=== PATIENT | male | born 1955 | race African-American/Black ===

== ENCOUNTER 2018-02-05 15:32 | Emergency (ER) | payer BC ==
--- NOTE | 2018-02-05 15:49 | PDOC ---
Rapid Medical Evaluation Chief Complaint: Chest Pain Time Seen by Provider: 02/05/18 15:46 Medical Evaluation: Allergies Allergy/AdvReac Type Severity Reaction Status Date / Time No Known Allergies Allergy Verified 02/05/18 15:45 02/05/18 15:47 The patient presents with a chief complaint of: while eating lunch he developed chest pain squezing started 3 days ago. I have performed a brief in-person evaluation of this patient; Pertinent physical exam findings: ambulatory, in no respiratory distress I have ordered the following: labs, troponins, ekg The patient will proceed to the ED for further evaluation
[2018-02-05 15:50] VITALS: TEMP 98.6; BMI 22.5
--- NOTE | 2018-02-05 16:46 | PDOC ---
History of Present Illness <Laury Simmons - Last Filed: 02/05/18 21:52> - General History Source: Patient Exam Limitations: No Limitations - History of Present Illness Initial Comments: 02/05/18 21:44 Patient is a 62 year old male with a significant medical history of Asthma who present to the ED with complaints of chest pain that he said began 3 days ago. Patient reports experiencing chest pain that he states began 3 days while at home that radiates to his left arm. He reports chest pain is a heavy pain that increases with exertion. Patient reports experiencing associated Sob that is increased with exertion. He reports experiencing diffuse abdominal pain as well that he states is increased when eating. Patient reports experiencing a sour taste in the back of his throat when eating as well as feeling a burning sensation up his chest from his abdomen when eating. He reports experiencing slight sweating while eating, but denies any sweating when experiencing chest pains. Patient states he takes baby aspirin every day, stating his last aspirin was this morning. Denies nausea, vomiting. Denies fevers, chills. Denies dysuria, hematuria, constipation, diarrhea. Denies contact with sick individuals, out of state travelling. Denies any other symptoms. Allergies: None Social history: No smoking. No alcohol. No illicit drugs. Surgical history: None PMD: Dr. Jeovany De Souza <Justus Chang - Last Filed: 02/05/18 22:49> - General Chief Complaint: Chest Pain Stated Complaint: CHEST PAIN Time Seen by Provider: 02/05/18 15:46 Past History - Past Medical History COPD: No Diabetes: Yes (borderline) HTN: Yes Hypercholesterolemia: Yes - Immunization History Immunization Up to Date: Yes - Suicide/Smoking/Psychosocial Hx Smoking History: Never smoked <Laury Simmons - Last Filed: 02/05/18 21:52> <Justus Chang - Last Filed: 02/05/18 22:49> - Past Medical History Allergies/Adverse Reactions: Allergies Allergy/AdvReac Type Severity Reaction Status Date / Time No Known Allergies Allergy Verified 02/05/18 15:45 Home Medications: Ambulatory Orders Aspirin 81 mg PO DAILY 02/05/18 Ranitidine [Zantac -] 150 mg PO BID 14 Days #28 tablet 02/05/18 Review of Systems - Review of Systems Able to Perform ROS?: Yes Comments:: 02/05/18 22:49 GENERAL/CONSTITUTIONAL: +Diaphoresis. No fever or chills. No weakness. HEAD, EYES, EARS, NOSE AND THROAT: No change in vision. No ear pain or discharge. No sore throat. GASTROINTESTINAL: +abdominal pain. No nausea, vomiting, diarrhea or constipation. GENITOURINARY: No dysuria, frequency, or change in urination. CARDIOVASCULAR: +Chest pain. +Sob. RESPIRATORY: No cough, wheezing, or hemoptysis. MUSCULOSKELETAL:No joint or muscle swelling or pain. No neck or back pain. SKIN: No rash NEUROLOGIC: No headache, vertigo, loss of consciousness, or change in strength/ sensation. ENDOCRINE: No increased thirst. No abnormal weight change. HEMATOLOGIC/LYMPHATIC: No anemia, easy bleeding, or history of blood clots. ALLERGIC/IMMUNOLOGIC: No hives or skin allergy. <Justus Chang - Last Filed: 02/05/18 22:49> *Physical Exam - Vital Signs Last Vital Signs Temp Pulse Resp BP Pulse Ox 98.6 F 84 18 128/99 98 02/05/18 15:46 02/05/18 15:46 02/05/18 15:46 02/05/18 15:46 02/05/18 15:46 <Laury Simmons - Last Filed: 02/05/18 21:52> - Vital Signs Last Vital Signs Temp Pulse Resp BP Pulse Ox 98.6 F 64 18 133/91 98 02/05/18 15:46 02/05/18 19:27 02/05/18 19:27 02/05/18 19:27 02/05/18 19:27 - Physical Exam Comments: 02/05/18 21:45 GENERAL: Awake, alert, and fully oriented, in no acute distress HEAD: No signs of trauma EYES: PERRLA, EOMI, sclera anicteric, conjunctiva clear ENT: Auricles normal inspection, hearing grossly normal, nares patent, oropharynx clear without exudates. Moist mucosa NECK: Normal ROM, supple, no lymphadenopathy, JVD, or masses LUNGS: Breath sounds equal, clear to auscultation bilaterally. No wheezes, and no crackles HEART: Regular rate and rhythm, normal S1 and S2, no murmurs, rubs or gallops ABDOMEN: +Mild epigastric tenderness Soft, normoactive bowel sounds. No guarding, no rebound. No masses EXTREMITIES: Normal range of motion, no edema. No clubbing or cyanosis. No cords, erythema, or tenderness NEUROLOGICAL: Cranial nerves II through XII grossly intact. Normal speech, normal gait SKIN: Warm, Dry, normal turgor, no rashes or lesions noted. <CharleneJustus - Last Filed: 02/05/18 22:49> Heart Score/ECG Review - History History: Moderately suspicious - Electrocardiogram EKG: Normal - Age Age: 45-65 - Risk Factors Risk Factors Heart Score: Yes Hx Hypertension Based on the list above the patient has:: 1-2 risk factors - Troponin Troponin: </= normal limit - Score Heart Score - Total: 3 - ECG Intrepretation Comment:: 02/05/18 17:03 sinus at 77, L axis, nl interval, poor r wave progression, q waves anteriorly and inferiorly that are age indeterminate, no acute st/t wave findings <Laury Simmons - Last Filed: 02/05/18 21:52> ED Treatment Course - LABORATORY CBC & Chemistry Diagram: 02/05/18 16:42 02/05/18 16:42 - RADIOLOGY Radiology Studies Ordered: Category Date Time Status CHEST PA & LAT [RAD] Stat Radiology 02/05/18 16:44 Ordered <Laury Simmons - Last Filed: 02/05/18 21:52> - LABORATORY CBC & Chemistry Diagram: 02/05/18 16:42 02/05/18 16:42 - ADDITIONAL ORDERS Additional order review: Laboratory Results 02/05/18 02/05/18 02/05/18 20:13 17:15 16:54 Sodium Potassium Chloride Carbon Dioxide Anion Gap BUN Creatinine Creat Clearance w eGFR Random Glucose Calcium Magnesium 2.4 Total Bilirubin AST ALT Alkaline Phosphatase Creatine Kinase 277 302 Creatine Kinase Index 0.5 CK-MB (CK-2) 1.782 Troponin I < 0.02 < 0.02 B-Natriuretic Peptide Total Protein Albumin Lipase 192 Urine Color Urine Appearance Urine pH Ur Specific [place] Urine Protein Urine Glucose (UA) Urine Ketones Urine Blood Urine Nitrite Urine Bilirubin Urine Urobilinogen Ur Leukocyte Esterase 02/05/18 02/05/18 02/05/18 16:42 16:42 16:42 Sodium 139 Potassium 4.1 Chloride 104 Carbon Dioxide 28 Anion Gap 7 L BUN 7 Creatinine 1.2 Creat Clearance w eGFR > 60 Random Glucose 87 Calcium 8.2 L Magnesium Total Bilirubin 0.4 AST 26 ALT 28 Alkaline Phosphatase 91 Creatine Kinase Creatine Kinase Index CK-MB (CK-2) Troponin I B-Natriuretic Peptide 12.41 Total Protein 7.0 Albumin 4.1 Lipase Urine Color Colorless Urine Appearance Clear Urine pH 8.0 Ur Specific [place] 1.003 Urine Protein Negative Urine Glucose (UA) Negative Urine Ketones Negative Urine Blood Negative Urine Nitrite Negative Urine Bilirubin Negative Urine Urobilinogen Negative Ur Leukocyte Esterase Negative 02/05/18 16:42 RBC 5.26 MCV 87.3 MCHC 33.0 RDW 13.8 MPV 8.5 - Medications Given in the ED: ED Medications Discontinued Medications Generic Name Dose Route Start Last Admin Trade Name Prasannaq PRN Reason Stop Dose Admin Al Hydroxide/Mg Hydroxide 30 ml 02/05/18 17:00 02/05/18 17:38 Mylanta Oral Suspension - PO 02/05/18 17:01 30 ml ONCE ONE Administration Aspirin 324 mg 02/05/18 16:59 02/05/18 17:38 Asa - PO 02/05/18 17:00 324 mg ONCE ONE Administration Famotidine/Sodium Chloride 20 mg in 50 mls @ 100 mls/hr 02/05/18 17:15 17:42 Pepcid 20 Mg Premixed Ivpb - IVPB 02/05/18 17:44 100 mls/hr ONCE ONE Administration Lidocaine HCl 20 ml 02/05/18 17:00 02/05/18 18:20 Xylocaine 2% Viscous Oral - MM 02/05/18 17:01 20 ml ONCE ONE Administration Sodium Chloride 1,000 ml 02/05/18 16:59 02/05/18 17:38 Normal Saline - IV 02/05/18 17:00 1,000 ml ONCE ONE Administration <Justus hCang - Last Filed: 02/05/18 22:49> Medical Decision Making - Medical Decision Making 02/05/18 17:04 a/p: 62yo male with 2 complaints - cp and epigastric pain -concern for poss acs given CP with exertion that resolves at rest, diaphoresis , and sob -cp radiates down L arm -will check labs, ekg, cxr, trop, give asa -also with epigastric pain when eating - burning sensation - concern for PUD, gastritis, GERD, pancreatitis -will add abd/belly labs to orders -maalox, pepcid for pain -will monitor and reassess -hx of HTN on losartan -has seen Josefina for cards in the past 02/05/18 19:18 pt states all pain resolved feeling better no abd pain discussed labs and imaging pt states he does not want to stay overnight will stay for another set of cardiac enzymes states he will call Dr. Rocha tomorrow to arrange for cardiac eval as outpt discussed all reasons to stay and pt states he prefers to be eval outpt 02/05/18 21:52 repeat trop negative no pain at this time 02/05/18 21:53 heart score 3. stable for d/c to home and oupt follow up answered all questions discussed all reasons to return to the ED <Laury Simmons - Last Filed: 02/05/18 21:52> *DC/Admit/Observation/Transfer - Discharge Dispostion Admit: No - Attestations Physician Attestion: 02/05/18 19:21 I, Dr. Laury Simmons DO, attest that this document has been prepared under my direction and personally reviewed by me in its entirety. I further attest, that it accurately reflects all work, treatment, procedures and medical decision -making performed by me. <Laury Simmons - Last Filed: 02/05/18 21:52> - Attestations Scribe Attestion: 02/05/18 21:46 Documentation prepared by Justus Cahng, acting as manager medical affairs for Laury Simmons DO, MD/. <Justus Chang - Last Filed: 02/05/18 22:49> Diagnosis at time of Disposition: Epigastric abdominal pain, Chest pain - Discharge Dispostion Disposition: HOME Condition at time of disposition: Stable - Prescriptions Prescriptions: Ranitidine [Zantac -] 150 mg PO BID 14 Days #28 tablet - Referrals Referrals: Jeovany De Souza MD [Primary Care Provider] - Eriberto Rocha MD [Staff Physician] - David Chau DO [Staff Physician] - - Patient Instructions Printed Discharge Instructions: DI for Chest Pain, DI for Epigastric Pain Additional Instructions: Please call the inbound customer service agent and hydrogenation operator in the morning to arrange for follow up. please call your PMD to arrange for follow up. Please return to the ED with any further concerns. Please take all medications as prescribed. - Post Discharge Activity
[2018-02-05] MEDS ORDERED: ASPIRIN 81 MG CHEWABLE TABLETS PO ONE (16:59)
[2018-02-05] MEDS ORDERED: SODIUM CHLORIDE 0.9% 1000 ML INFUS.BAG IV ONE (16:59)
[2018-02-05] MEDS ORDERED: LIDOCAINE VISCOUS 2% ORAL/TOP 20 ML UNIT-DOSE CUP MM ONE (17:00)
[2018-02-05] MEDS ORDERED: MAG HYDROX/AL HYDROX/SIMETH 30 ML UNIT-DOSE CUP PO ONE (17:00)
[2018-02-05 17:14] LABS: HEMATOCRIT 45.9 % (35.4-49); HEMOGLOBIN 15.2 GM/dL (11.7-16.9); MCH 28.8 pg (25.7-33.7); MEAN CELL VOLUME 87.3 fl (80-96); MEAN PLT VOLUME 8.5 fl (7.5-11.1); PLATELET COUNT 131 K/MM3 (134-434); RBC 5.26 M/mm3 (4.00-5.60); RDW 13.8 % (11.9-15.9); WHITE BLOOD COUNT 3.3 K/mm3 (4.0-10.0)
[2018-02-05] MEDS ORDERED: FAMOTIDINE 20 MG/50 ML IVPB 20 MG/50 ML MG IVPB ONE ×2 (17:15→17:32)
[2018-02-05] MEDS ORDERED: MAG HYDROX/AL HYDROX/SIMETH 30 ML UNIT-DOSE CUP ONE (17:32)
[2018-02-05] MEDS ORDERED: ASPIRIN 81 MG CHEWABLE TABLETS ONE (17:32)
[2018-02-05 17:43] LABS: ALBUMIN 4.1 g/dl (3.4-5.0); ALK PHOS 91 U/L (45-117); ANION GAP 7 (8-16); BILIRUBIN,TOTAL 0.4 mg/dL (0.2-1.0); BLOOD UREA NITROGEN 7 mg/dL (7-18); CALCIUM 8.2 mg/dL (8.5-10.1); CHLORIDE 104 mmol/L (98-107); CO2 28 mmol/L (21-32); CREATININE 1.2 mg/dL (0.7-1.3); GLUCOSE,RANDOM 87 mg/dL (74-106); POTASSIUM 4.1 mmol/L (3.5-5.1); SGOT/AST 26 U/L (15-37); SGPT/ALT 28 U/L (12-78); SODIUM 139 mmol/L (136-145)
[2018-02-05 17:49] LABS: MAGNESIUM 2.4 mg/dL (1.8-2.4)
[2018-02-05] MEDS ORDERED: LIDOCAINE VISCOUS 2% ORAL/TOP 20 ML UNIT-DOSE CUP ONE (18:14)
[2018-02-05 18:41] LABS: URINE APPEARANCE CLEAR; URINE BILIRUBIN NEGATIVE (NEGATIVE); URINE BLOOD NEGATIVE (NEGATIVE); URINE COLOR COLORLESS; URINE GLUCOSE (UA) NEGATIVE (NEGATIVE); URINE KETONE NEGATIVE (NEGATIVE); URINE LEUK ESTERASE NEGATIVE (NEGATIVE); URINE NITRITE NEGATIVE (NEGATIVE); URINE PROTEIN NEGATIVE (NEGATIVE); URINE UROBILINOGEN NEGATIVE mg/dL (0.2-1.0)
[2018-02-05 19:29] VITALS: BP 133/91; PULSE 64
--- NOTE | 2018-02-06 08:44 | EKG ---
Test Reason : Blood Pressure : / mmHG Vent. Rate : 077 BPM Atrial Rate : 077 BPM P-R Int : 160 ms QRS Dur : 090 ms QT Int : 358 ms P-R-T Axes : 068 -48 040 degrees QTc Int : 405 ms NORMAL SINUS RHYTHM LEFT AXIS DEVIATION POSSIBLE ANTERIOR INFARCT , AGE UNDETERMINED ABNORMAL ECG NO PREVIOUS ECGS AVAILABLE Confirmed by AILYN TORRES MD ([id number]) on 02/06/2018 8:44:25 AM Referred By: Confirmed By:AILYN TORRES MD
== END 2018-02-05 22:11 | disposition home or self-care (01) ==
LOC: JER 15:32
PROC: 3E033GC Introduction of Other Therapeutic Substance into Peripheral Vein, Percutaneous Approach (ICD-10-PCS; principal; 2018-02-05)
PROC: 3E0337Z Introduction of Electrolytic and Water Balance Substance into Peripheral Vein, Percutaneous Approach (ICD-10-PCS; 2018-02-05)
DX: R07.9 Chest pain, unspecified (principal); R10.13 Epigastric pain; I10 Essential (primary) hypertension; E78.00 Pure hypercholesterolemia, unspecified; R73.03 Prediabetes
CPT/HCPCS: 36415; 71046-TC-FY; 80053; 81003; 82550; 82553; 83690; 83735; 83880; 84484; 85027; 93005; 93010; 99283-25

== ENCOUNTER 2020-01-05 17:02 | Emergency (ER) | payer BC, OTHER ==
[2020-01-05] MEDS ORDERED: SODIUM CHLORIDE 1,000 ML IV STA (17:13)
[2020-01-05] MEDS ORDERED: ONDANSETRON 4 MG/2 ML VIAL IVPUSH ONE (17:13)
--- NOTE | 2020-01-05 17:14 | PDOC ---
Rapid Medical Evaluation Chief Complaint: Nausea/Vomiting Time Seen by Provider: 01/05/20 17:11 Medical Evaluation: Allergies Allergy/AdvReac Type Severity Reaction Status Date / Time No Known Allergies Allergy Verified 01/05/20 17:11 01/05/20 17:11 Pt presents for evaluation of vomiting and diarrhea for one day. Exam: diffuse abdominal tenderness without focal findings Orders: Labs, IV Pt to proceed to the ER for further evaluation Discharge Disposition - Diagnosis Vomiting Qualifiers: Vomiting type: unspecified Vomiting Intractability: non-intractable Nausea presence: without nausea Qualified Code(s): R11.11 - Vomiting without nausea - Referrals - Patient Instructions - Post Discharge Activity
[2020-01-05 17:16] VITALS: BP 132/94; PULSE 72; TEMP 99.1; BMI 25.4
[2020-01-05] MEDS ORDERED: ONDANSETRON 4 MG/2 ML VIAL ONE (18:14)
[2020-01-05 18:36] LABS: BASO % 0.3 % (0-2.0); EOS % 0.5 % (0-4.5); HEMATOCRIT 47.7 % (35.4-49); HEMOGLOBIN 15.7 GM/dL (11.7-16.9); LYMPH % 7.5 % (8-40); MCH 29.8 pg (25.7-33.7); MCHC 32.8 g/dl (32.0-35.9); MEAN CELL VOLUME 90.7 fl (80-96); MEAN PLT VOLUME 9.5 fl (7.5-11.1); MONO % 4.2 % (3.8-10.2); NEUT % 87.5 % (42.8-82.8); PLATELET COUNT 126 K/MM3 (134-434); RBC 5.26 M/mm3 (4.00-5.60); RDW 14.8 % (11.9-15.9); WHITE BLOOD COUNT 4.6 K/mm3 (4.0-10.0)
[2020-01-05 18:38] LABS: PH,URINE 6.5 (5.0-8.0); URINE APPEARANCE CLEAR; URINE BILIRUBIN NEGATIVE (NEGATIVE); URINE COLOR YELLOW; URINE GLUCOSE (UA) NEGATIVE (NEGATIVE); URINE KETONE 2+ (NEGATIVE); URINE LEUK ESTERASE NEGATIVE (NEGATIVE); URINE NITRITE NEGATIVE (NEGATIVE); URINE PROTEIN TRACE (NEGATIVE)
[2020-01-05 19:12] LABS: ALK PHOS 77 U/L (45-117); ANION GAP 5 MMOL/L (8-16); BILIRUBIN,TOTAL 0.8 mg/dL (0.2-1); BLOOD UREA NITROGEN 13.1 mg/dL (7-18); CALCIUM 8.5 mg/dL (8.5-10.1); CHLORIDE 105 mmol/L (98-107); CO2 26 mmol/L (21-32); CREATININE 1.1 mg/dL (0.55-1.3); GLUCOSE,RANDOM 101 mg/dL (74-106); LIPASE 641 U/L (73-393); POTASSIUM 4.3 mmol/L (3.5-5.1); SGOT/AST 25 U/L (15-37); SGPT/ALT 36 U/L (13-61); SODIUM 136 mmol/L (136-145); TOT PROT 7.2 g/dl (6.4-8.2)
--- NOTE | 2020-01-05 19:44 | PDOC ---
Attending Attestation - Resident Resident Name: Rakesh Boucher - ED Attending Attestation I have performed the following: I have examined & evaluated the patient, The case was reviewed & discussed with the resident, I agree w/resident's findings & plan - HPI HPI: 01/05/20 21:13 see resident hpi - Physicial Exam PE: 01/05/20 21:13 see resident exam - Medical Decision Making 01/05/20 21:13 64-year-old male with diarrhea vomiting weakness and abdominal discomfort Right upper quadrant ultrasound was unremarkable Lipase was elevated at approximately twice normal Due to patient's age, history of vomiting and elevated labs it was recommended he stay for observation He is refusing and will be signing out AGAINST MEDICAL ADVICE, he will be given outpatient follow-up recommendations for both primary care and gastroenterology and has been urged to return should he reconsider or should his condition worsen in any way He has verbalized understanding and has agreed to return
--- NOTE | 2020-01-05 19:53 | PDOC ---
History of Present Illness - General Chief Complaint: Nausea/Vomiting Stated Complaint: VOMITING/DIARRHEA Time Seen by Provider: 01/05/20 17:11 History Source: Patient Exam Limitations: No Limitations - History of Present Illness Initial Comments: 01/05/20 19:50 64 yo M with a hx of HTN and asthma presents to the emergency department with N/ V/D with associative abdominal pain. Per the patient, he states his symptoms began suddenly today in the morning. Per the patient, he states the pain was cramping in nature, 10 originally, without radiation, and denies worsening and aggravating qualities. Denies hx of abdominal surgeries and denies gallbladder disease. Denies the following: ETOH abuse, fever, SOB, chest pain, back pain, dysuria, and hematochezia. Denies blood in his vomit and diarrhea. Per the patient, he had 2 episodes of each. Allergies: NKDA Past History - Past Medical History Allergies/Adverse Reactions: Allergies Allergy/AdvReac Type Severity Reaction Status Date / Time No Known Allergies Allergy Verified 01/05/20 17:11 Home Medications: Ambulatory Orders Aspirin 81 mg PO DAILY 02/05/18 Ranitidine [Zantac -] 150 mg PO BID 14 Days #28 tablet 02/05/18 COPD: No Diabetes: Yes (borderline) HTN: Yes Hypercholesterolemia: Yes - Immunization History Immunization Up to Date: Yes - Psycho Social/Smoking Cessation Hx Smoking History: Never smoked Hx Alcohol Use: No Drug/Substance Use Hx: No Review of Systems - Review of Systems Able to Perform ROS?: Yes Is the patient limited Irish proficient: No Constitutional: No: Chills, Diaphoresis, Fever, Weakness HEENTM: No: Eye Pain, Ear Pain, Nose Pain, Throat Pain, Mouth Pain Respiratory: No: Cough, Shortness of Breath, Hemoptysis Cardiac (ROS): No: Chest Pain, Lightheadedness, Palpitations ABD/GI: Yes: Diarrhea, Nausea, Vomiting. No: Constipated, Rectal Bleeding, Tarry Stools : No: Burning, Dysuria, Hematuria Musculoskeletal: No: Back Pain, Joint Pain, Neck Pain Integumentary: No: Bruising, Erythema, Rash Neurological: No: Headache, Tingling Psychiatric: No: Change in Appetite Endocrine: No: Unexplained Weight Loss Hematologic/Lymphatic: No: Anemia *Physical Exam - Vital Signs Last Vital Signs Temp Pulse Resp BP Pulse Ox 99.1 F 72 18 132/94 99 01/05/20 17:11 01/05/20 17:11 01/05/20 17:11 01/05/20 17:11 01/05/20 17:11 - Physical Exam General Appearance: Yes: Nourished, Appropriately Dressed. No: Apparent Distress, Intoxicated HEENT: positive: EOMI, CHENCHO, Normal Voice, Symmetrical, Pharynx Normal, Hearing Grossly Normal. negative: Pale Conjunctivae, Scleral Icterus (R), Scleral Icterus (L), Muffled/Hoarse voice, Pharyngeal Erythema, Tonsillar Exudate, Tonsillar Erythema, Nasal Congestion, Rhinorrhea, Excessive drooling Neck: positive: Trachea midline, Supple. negative: Tender, Lymphadenopathy (R) , Lymphadenopathy (L), Tender lateral, Tender midline Respiratory/Chest: positive: Lungs Clear, Normal Breath Sounds. negative: Chest Tender, Respiratory Distress, Accessory Muscle Use, Crackles, Rales, Rhonchi, Stridor, Wheezing Cardiovascular: positive: Regular Rhythm, Regular Rate, S1, S2. negative: Systolic Murmur Gastrointestinal/Abdominal: positive: Normal Bowel Sounds, Tender (epigastric region). negative: Distended, Guarding, Rebound Lymphatic: negative: Adenopathy Musculoskeletal: positive: Normal Inspection. negative: CVA Tenderness, Vertebral Tenderness Extremity: positive: Normal Capillary Refill, Normal Inspection, Normal Range of Motion. negative: Tender, Swelling, Calf Tenderness Integumentary: positive: Normal Color, Dry, Warm. negative: Pale, Cold, Clammy , Rash Neurologic: positive: Fully Oriented, Alert, Normal Mood/Affect ED Treatment Course - LABORATORY CBC & Chemistry Diagram: 01/05/20 17:38 01/05/20 17:38 - ADDITIONAL ORDERS Additional order review: Laboratory Results 01/05/20 01/05/20 17:38 17:38 Sodium 136 Potassium 4.3 Chloride 105 Carbon Dioxide 26 Anion Gap 5 L BUN 13.1 Creatinine 1.1 Est GFR (CKD-EPI)AfAm 81.22 Est GFR (CKD-EPI)NonAf 70.07 Random Glucose 101 Calcium 8.5 Total Bilirubin 0.8 AST 25 ALT 36 Alkaline Phosphatase 77 Total Protein 7.2 Albumin 4.0 Lipase 641 H Urine Color Yellow Urine Appearance Clear Urine pH 6.5 Ur Specific [place] 1.029 Urine Protein Trace Urine Glucose (UA) Negative Urine Ketones 2+ H Urine Blood Negative Urine Nitrite Negative Urine Bilirubin Negative Urine Urobilinogen 1.0 Ur Leukocyte Esterase Negative 01/05/20 17:38 RBC 5.26 MCV 90.7 MCHC 32.8 RDW 14.8 MPV 9.5 D Neutrophils % 87.5 H Lymphocytes % 7.5 L Monocytes % 4.2 Eosinophils % 0.5 Basophils % 0.3 - RADIOLOGY Radiology Studies Ordered: Category Date Time Status ABDOMEN US -LIMITED [US] Stat Ultrasound 01/05/20 19:49 Ordered - Medications Given in the ED: ED Medications Discontinued Medications Generic Name Dose Route Start Last Admin Trade Name Freq PRN Reason Stop Dose Admin Sodium Chloride 1,000 mls @ 1,000 mls/hr 01/05/20 17:13 01/05/20 18:10 Normal Saline - IV 01/05/20 18:12 1,000 mls/hr ASDIR STA Administration Ondansetron HCl 4 mg 01/05/20 17:13 01/05/20 18:10 Zofran Injection IVPUSH 01/05/20 17:14 4 mg ONCE ONE Administration Medical Decision Making - Medical Decision Making 64 yo M with a hx of HTN and asthma presents to the emergency department with N/ V/D with associative abdominal pain. Per the patient, he states his symptoms began suddenly today in the morning. Initial vitals: Initial Vital Signs Temp Pulse Resp BP Pulse Ox 99.1 F 72 18 132/94 99 01/05/20 17:11 01/05/20 17:11 01/05/20 17:11 01/05/20 17:11 01/05/20 17:11 Work up: epigastric pain concerning for pancreatitis vs gastritis vs cholelithiasis vs cholecystitis vs GERD Laboratory Tests 01/05/20 01/05/20 01/05/20 17:38 17:38 17:38 WBC 4.6 RBC 5.26 Hgb 15.7 Hct 47.7 MCV 90.7 MCH 29.8 MCHC 32.8 RDW 14.8 Plt Count 126 L MPV 9.5 D Absolute Neuts (auto) 4.1 Neutrophils % 87.5 H Lymphocytes % 7.5 L Monocytes % 4.2 Eosinophils % 0.5 Basophils % 0.3 Nucleated RBC % 0 Sodium 136 Potassium 4.3 Chloride 105 Carbon Dioxide 26 Anion Gap 5 L BUN 13.1 Creatinine 1.1 Est GFR (CKD-EPI)AfAm 81.22 Est GFR (CKD-EPI)NonAf 70.07 Random Glucose 101 Calcium 8.5 Total Bilirubin 0.8 AST 25 ALT 36 Alkaline Phosphatase 77 Troponin I < 0.02 Total Protein 7.2 Albumin 4.0 Triglycerides 36 Cholesterol 206 H Total LDL Cholesterol 122 H HDL Cholesterol 71 H Lipase 641 H Urine Color Yellow Urine Appearance Clear Urine pH 6.5 Ur Specific [place] 1.029 Urine Protein Trace Urine Glucose (UA) Negative Urine Ketones 2+ H Urine Blood Negative Urine Nitrite Negative Urine Bilirubin Negative Urine Urobilinogen 1.0 Ur Leukocyte Esterase Negative Patient was given 1 L of NS with zofran 4 mg. Patient was reassessed and had significant improvement in pain. US shows no evidence of cholelithiasis or cholecystitis It was advised to the patient to be admitted to the hospital for pancreatitis with unknown etiology (idiopathic etiology can occur in up to 20% of case) with cholelithiasis ruled out and the patient denies a hx of drinking ETOH. A reconciliation of his medications by the inpatient team would be advisable given that it could contribute to the onset of the pancreatitis. Despite voicing these concerns with the patient, the patient stated he feels much better and does not want to stay for further work up. I offered an alternative of staying for observation to down trend his lipase and contineu to hydrate him. The patient still denied and wishes to be discharged. I explained to the patient the possibility to permanent disability and harm secondary to refusing admission that could lead up to the possibility of . The patient understood and said he will follow up with his PMD within 1 week after discharge. Patient left AMA EKG: NSR without st elevation of depression. TWI noted in III. Discharge - Discharge Information Problems reviewed: Yes Clinical Impression/Diagnosis: Vomiting Qualifiers: Vomiting type: unspecified Vomiting Intractability: non-intractable Nausea presence: without nausea Qualified Code(s): R11.11 - Vomiting without nausea Disposition: AGAINST MEDICAL ADVICE - Admission No - Follow up/Referral Referrals: Jeovany De Souza MD [Primary Care Provider] - John Cooney MD [Staff Physician] - - Patient Discharge Instructions Patient Printed Discharge Instructions: DI for Pancreatitis, DI for Vomiting - - Adult Additional Instructions: You were seen in the emergency department for the evaluation of your abdominal pain. You were found to have pancreatitis. You are leaving against medical advice in which we advise admission. Please follow up with Dr. Cooney within 48 hours after discharge for follow up care and management. Please return to the emergency department if you have worsening or new concerning symptoms. Thank you. - Post Discharge Activity
[2020-01-05 20:10] LABS: CHOLESTEROL 206 mg/dL (50-200); HDL CHOLESTEROL 71 mg/dL (40-60); LDL CHOLESTEROL (ONLY SJRH) 122 mg/dL (5-100); TRIGLYCERIDES 36 mg/dL (0-150)
--- NOTE | 2020-01-06 14:27 | EKG ---
Test Reason : Blood Pressure : / mmHG Vent. Rate : 081 BPM Atrial Rate : 081 BPM P-R Int : 158 ms QRS Dur : 084 ms QT Int : 348 ms P-R-T Axes : 074 -52 003 degrees QTc Int : 404 ms NORMAL SINUS RHYTHM POSSIBLE LEFT ATRIAL ENLARGEMENT LEFT AXIS DEVIATION SEPTAL INFARCT (CITED ON OR BEFORE 05-FEB-2018) ABNORMAL ECG WHEN COMPARED WITH ECG OF 05-FEB-2018 15:39, NONSPECIFIC T WAVE ABNORMALITY NOW EVIDENT IN INFERIOR LEADS Confirmed by JASON LABOY MD ([id number]) on 01/06/2020 2:26:55 PM Referred By: Confirmed By:JASON LABOY MD
== END 2020-01-05 22:00 | disposition left against medical advice (07) ==
LOC: JER 17:02
PROC: 3E033GC Introduction of Other Therapeutic Substance into Peripheral Vein, Percutaneous Approach (ICD-10-PCS; principal; 2020-01-05)
DX: K86.9 Disease of pancreas, unspecified (principal); R11.11 Vomiting without nausea; I10 Essential (primary) hypertension; E78.00 Pure hypercholesterolemia, unspecified; E11.9 Type 2 diabetes mellitus without complications
CPT/HCPCS: 36415; 76705-TC; 80053; 80061; 81003; 83690; 83721; 84484; 85025; 87086; 93005; 93010; 99283-25; J7030